=== PATIENT | female | born 1995 | race Caucasian/White ===

== ENCOUNTER 2023-01-24 20:58 | Emergency (ER) | payer MEDICAID, SELFPAY ==
--- NOTE | ~2023-01-24 | US_ITS ---
EXAMINATION: US VENOUS ULTRASOUND WITH DOPPLER LOWER EXTREMITY, BILATERAL CLINICAL INFORMATION: Pain COMPARISON: None available. TECHNIQUE: Ultrasound of the deep veins is performed from the hip to the calf with compression sonography and color and pulse Doppler assessment. Spectral analysis with color-flow imaging is performed. FINDINGS: RIGHT: There is normal venous compression and respiratory variation and augmented flow. The visualized common femoral vein, superficial femoral vein, profunda femoral vein, popliteal vein, and the trifurcation region shows no evidence of deep venous thrombosis. There is no significant popliteal fossa cyst. Mildly prominent inguinal lymph node which may be reactive. LEFT: There is normal venous compression and respiratory variation and augmented flow. The visualized common femoral vein, superficial femoral vein, profunda femoral vein, popliteal vein, and the trifurcation region shows no evidence of deep venous thrombosis. There is no significant popliteal fossa cyst. Mildly prominent inguinal lymph node which may be reactive. If the patient's symptoms persist, followup ultrasound in 5 days 7 days might be of value to exclude proximal propagation from a non-visualized calf vein. US/US venous duplex LE BI IMPRESSION: No DVT demonstrated in the bilateral lower extremities.
--- NOTE | ~2023-01-24 | XR_ITS ---
EXAMINATION: XR CHEST CLINICAL INFORMATION: Shortness of breath COMPARISON: 04/27/2015 TECHNIQUE: 2 views of the chest were obtained. FINDINGS: Lung volumes are symmetric. There are relatively symmetric mild bibasilar airspace opacities and suspected trace pleural effusions. Mild prominence of the central vasculature. No evidence of pneumothorax. Cardiac silhouette appears near the upper limits of normal in size, increased from prior. No acute osseous findings are seen. XR/XR chest 2V IMPRESSION: Mild bibasilar airspace opacities and suspected trace pleural effusions. Mild prominence of the central vasculature is also noted along with increased size of the cardiac silhouette. Overall findings may indicate vascular congestion and subtle interstitial edema in the proper clinical setting.
[2023-01-24 21:50] LABS: MANUAL DIFF FLAG NO
[2023-01-24 21:51] LABS: Basophils Percent Auto 0.2 % (0-2); Eosinophils Absolute Auto 0.2 X10*3/uL (0.0-0.4); Eosinophils Percent Auto 2.2 % (0-4); Hematocrit 28.2 % (37.0-47.0); Hemoglobin 9.2 g/dl (12.0-16.0); Imm Gran Abs Auto 0.06 X10*3/uL (0.00-0.03); Imm Gran Pct Auto 0.7 % (0.0-0.4); Lymphocytes Absolute Auto 1.7 X10*3/uL (1.2-4.9); Lymphocytes Percent Auto 20.5 % (20-40); Mean Corpuscular HGB Conc 32.6 g/dl (31.0-35.0); Mean Platelet Volume 9.7 fL (9.4-12.3); Monocytes Absolute Auto 0.4 X10*3/uL (0.1-1.2); Monocytes Percent Auto 5.3 % (2-11); Neutrophils Absolute Auto 5.9 x10*3/uL (2.0-8.3); Neutrophils Percent Auto 71.1 % (45-73); Platelet Count 327 X10*3/uL (160-400); Red Blood Count 3.17 X10*6/uL (4.20-5.50); Red Cell Distribution Width 12.3 % (11.0-16.0); White Blood Count 8.3 X10*3/uL (4.8-10.8)
[2023-01-24 21:57] LABS: INTERNATIONAL NORM RATIO 0.9 (0.9-1.1); Prothrombin Time 10.3 SEC (10.0-13.1)
[2023-01-24 22:04] LABS: Alanine Aminotransferase 25 U/L (0-31); Albumin Level 3.2 g/dL (3.5-5.0); Alkaline Phosphatase 121 U/L (39-117); Anion Gap 12 (12-20); Aspartate Amino Transferase 18 U/L (5-31); Bilirubin Total 0.3 mg/dL (0.0-1.0); Blood Urea Nitrogen 11 mg/dL (9-16); Calcium 8.9 mg/dL (8.4-10.2); Carbon Dioxide 25 mmol/L (22-29); Chloride 108 mmol/L (96-108); Estimated Glomerular Filt Rate > 60; Glucose Random 87 mg/dL (60-115); Potassium 3.7 mmol/L (3.3-5.1); Sodium 141 mmol/L (135-145); Total Protein 6.2 g/dL (6.5-8.0)
[2023-01-24 22:09] LABS: Appearance Urine Cloudy; Color Urine Orange; Glucose Urine UA Negative (Negative); Leukocyte Esterase Urine Moderate (2+) (Negative); Nitrite Urine Negative (Negative); Specific Gravity - Urine 1.015 (1.005-1.025); UMIC TRIGGER UACC YES; Urine Blood Large (3+) (Negative); Urine Ketones Trace mg/dL (Negative); Urine Protein 100 (2+) mg/dL (Neg-Trace)
[2023-01-24 22:16] LABS: Bacteria Urine None Seen (None Seen); Hyaline Casts Urine 0-2 /LPF (0-2); RBC Urine >20 /HPF (0-2); UACC Culture Trigger YES; WBC Urine >50 /HPF (0-5)
[2023-01-24 22:41] VITALS: BP 167/97; PULSE 63; RESP 18; TEMP 36.9; O2SAT 99; BMI 36.7
--- NOTE | 2023-01-24 22:45 | PC.NURSE ---
patient came in to the ER complaining of having shortness of breath, and swollen extremities patient stated she had a c section last Saturday patient vitals are elevated due to patient stated the pain is a 7/10 patient will continue to be monitored for safety
[2023-01-24 23:32] VITALS: BP 158/92; PULSE 63; RESP 18; TEMP 37.2; O2SAT 98
--- NOTE | 2023-01-25 | ECG_ITS ---
Test Reason : HEART FAILURE Blood Pressure : / mmHG Vent. Rate : 062 BPM Atrial Rate : 062 BPM P-R Int : 132 ms QRS Dur : 072 ms QT Int : 410 ms P-R-T Axes : 062 056 038 degrees QTc Int : 416 ms Normal sinus rhythm Normal ECG When compared with ECG of 27-APR-2015 15:35, No significant change was found Referred By: Generic ED Physician Electronically Signed By:LION MOTLEY MD
[2023-01-25 01:31] VITALS: BP 147/82; PULSE 62; RESP 16; TEMP 36.8; O2SAT 98
--- NOTE | 2023-01-25 01:33 | MHC.EDTECH ---
THIS PCT JUST ASSUMED CARE OD PATIENT ,VITALS SIGN TAKEN ,PT TALKING ON PHONE ,WAITING TO BE SEEN BY PROVIDER .
--- NOTE | 2023-01-25 01:59 | ED.GENADULT ---
HPI - General Adult General Chief complaint: Extremity Problem Stated complaint: c section 7/8 swollen extremities,sob Time Seen by Provider: 01/25/23 01:33 Source: patient, RN notes reviewed and old records reviewed Mode of arrival: ambulatory Limitations: no limitations History of Present Illness HPI narrative: 27-year-old female presents for evaluation of leg swelling. Patient is 6 days She had a on 01/19/2023 This was the patient's 1st child The patient gave at [facility] She reports over last few days she has had increasing leg swelling, left greater than right She continues to have some vaginal bleeding with decreasing amounts of clots Patient reports associated shortness of breath. She states that she was diagnosed with ?asthma while I was . She tried calling her OBGYN today but was told should receive a call back and then the office closed before calling her back Denies any history of DVT or PE Related Data Allergies Allergy/AdvReac Type Severity Reaction Status Date / Time nut - unspecified [nut] Allergy Unknown TONGUE Unverified 03/31/20 17:26 SWELLS FRUIT Allergy Unknown TONGUE Uncoded 03/31/20 17:26 TINGLING Review of Systems Constitutional: Constitutional: Denies chills and Denies fever(s) Cardiovascular: Cardiovascular: Denies chest pain, Reports leg edema and Reports dyspnea Respiratory: Respiratory: Reports dyspnea Gastrointestinal: Gastrointestinal: Denies abdominal pain, Denies nausea and Denies vomiting Integumentary/Breasts: Skin/Breast: Denies erythema PMFSH Social History Social History Advance Directives: No Advance Directives Information Provided: Yes Physical Exam ED Vital Signs: Vital Signs - 24 hr 01/24/23 22:41 01/24/23 23:32 01/25/23 01:31 Temperature 98.4 F 99 F 98.2 F Pulse Rate 63 63 62 Respiratory Rate 18 18 16 Blood Pressure 167/97 H 158/92 H 147/82 H Pulse Oximetry 99 98 98 Oxygen Delivery Method Room Air Room Air Room Air BMI result Body Mass Index 36.7 Const General: healthy appearing, comfortable, no acute distress, alert and awake Nutritional Appearance: well nourished Orientation/consciousness: patient oriented x3 HENMT Head: Yes normocephalic and Yes atraumatic Eyes Eyelids: Yes eyelids normal Conjunctivae: conjunctivae normal Sclerae: sclerae normal Corneas: corneas normal Pupils: Equal, round and reactive pupils present EOM: EOMs intact bilaterally Neck Neck: Yes full ROM Resp Effort & Inspection: normal respiratory effort, able to speak in complete sentences, no audible wheezes and not labored Auscultation: clear to auscultation bilaterally Cardio Other: 2+ pitting edema to lower extremities bilaterally. Slightly left greater than right Skin General skin exam: elasticity normal Neuro General: patient oriented x3 Cranial nerves: Yes Equal, round and reactive pupils present and Yes Bilaterally intact EOM present Cognition (Neuro): normal cognition Extrem Other: Moving all extremities well without any obvious deformities Course Reevaluation(s) Reevaluation #1: The patient's blood pressure remains slightly elevated to 147/82. Ultrasound negative for DVT, chest x-ray shows mild volume overload. Will discuss with the patient's [facility] team at [facility]. The patient's vitals are otherwise stable, she is not hypoxic or tachycardic. A page is placed to [facility] at this time Time: 02:30 Reevaluation #2: Received call back from Dr. Finnegan, apparently the patient is in the [facility] system as Dorie Garza which slowed the process but I confirm with the patient at that is her new legal name. Dr. Finnegan would like the patient transferred to [facility] but may go by private car. I discussed this with the patient. The accepting doctor is Dr. Russel Porter. I discussed this with the patient who is comfortable with transfer and her significant other is bedside to drive her to [facility] and they report they know where they are expecting. The number to call for Report is [phone] nursing. Patient's chest x-ray and DVT ultrasounds were uploaded to radiology sharing Time: 03:20 Medical Decision Making Medical Decision Making MDM Narrative: 27-year-old female presents for evaluation of leg swelling, 6 days . There is obvious concern for DVT/PE. Will get ultrasounds to evaluate for DVT. Chest x-ray is also pending. Labs are significant for a mild anemia with a hemoglobin of 9.2 and hematocrit 28.2. This is expected after the patient's recent and expected vaginal bleeding. She reports that the bleeding has been improving. Patient's vital signs remained stable, she is not tachycardic or hypoxic. He can likely be safely discharged if she does not have any DVTs and no significant chest x-ray findings. Differential Diagnosis Symptomatic anemia Chronic anemia DVT PE Bronchitis Pneumonia Heart failure Preeclampsia Lab Data MDM Lab Attestation statement: I reviewed the patient's lab results. (Mild anemia with a hemoglobin of 9.2 and hematocrit of 28.2. No leukocytosis. Electrolytes without any significant abnormalities.) 01/24/23 21:44 01/24/23 21:44 Labs: Lab Results 01/24/23 01/24/23 01/24/23 Range/Units 21:44 21:44 21:44 WBC 8.3 (4.8-10.8) X10*3/uL RBC 3.17 L (4.20-5.50) X10*6/uL Hgb 9.2 L (12.0-16.0) g/dl Hct 28.2 L (37.0-47.0) % MCV 89.0 (80.0-98.0) fL MCH 29.0 (27.0-33.0) pg MCHC 32.6 (31.0-35.0) g/dl RDW 12.3 (11.0-16.0) % Plt Count 327 (160-400) X10*3/uL MPV 9.7 (9.4-12.3) fL Immature Gran % (Auto) 0.7 H (0.0-0.4) % Neut % (Auto) 71.1 (45-73) % Lymph % (Auto) 20.5 (20-40) % Nye % (Auto) 5.3 (2-11) % Eos % (Auto) 2.2 (0-4) % Baso % (Auto) 0.2 (0-2) % Lymph # (Auto) 1.7 (1.2-4.9) X10*3/uL Nye # (Auto) 0.4 (0.1-1.2) X10*3/uL Eos # (Auto) 0.2 (0.0-0.4) X10*3/uL Baso # (Auto) 0.0 (0.0-0.2) X10*3/uL Abs Immat Gran (auto) 0.06 H (0.00-0.03) X10*3/uL Absolute Neuts (auto) 5.9 (2.0-8.3) x10*3/uL Absolute Nucleated RBC 0.000 (0.0-0.012) X10*3/uL Nucleated RBC % (auto) 0.0 (0.0-0.2) /100WBC PT 10.3 (10.0-13.1) SEC INR 0.9 (0.9-1.1) Sodium 141 (135-145) mmol/L Potassium 3.7 (3.3-5.1) mmol/L Chloride 108 (96-108) mmol/L Carbon Dioxide 25 (22-29) mmol/L Anion Gap 12 (12-20) BUN 11 (9-16) mg/dL Creatinine 0.70 (0.5-1.4) mg/dL Estim Creat Clear Calc TNP Estimated GFR > 60 Random Glucose 87 (60-115) mg/dL Calcium 8.9 (8.4-10.2) mg/dL Total Bilirubin 0.3 (0.0-1.0) mg/dL AST 18 (5-31) U/L ALT 25 (0-31) U/L Alkaline Phosphatase 121 H (39-117) U/L Total Protein 6.2 L (6.5-8.0) g/dL Albumin 3.2 L (3.5-5.0) g/dL Urine Color Urine Appearance Urine pH (5.0-9.0) Ur Specific [place] (1.005-1.025) Urine Protein (Neg-Trace) mg/dL Urine Glucose (UA) (Negative) mg/dL Urine Ketones (Negative) mg/dL Urine Blood (Negative) Urine Nitrite (Negative) Ur Leukocyte Esterase (Negative) Urine RBC (0-2) /HPF Urine WBC (0-5) /HPF Ur Squamous Epith Cells (0-2) /HPF Urine Bacteria (None Seen) Hyaline Casts (0-2) /LPF 01/24/23 Range/Units 21:44 WBC (4.8-10.8) X10*3/uL RBC (4.20-5.50) X10*6/uL Hgb (12.0-16.0) g/dl Hct (37.0-47.0) % MCV (80.0-98.0) fL MCH (27.0-33.0) pg MCHC (31.0-35.0) g/dl RDW (11.0-16.0) % Plt Count (160-400) X10*3/uL MPV (9.4-12.3) fL Immature Gran % (Auto) (0.0-0.4) % Neut % (Auto) (45-73) % Lymph % (Auto) (20-40) % Nye % (Auto) (2-11) % Eos % (Auto) (0-4) % Baso % (Auto) (0-2) % Lymph # (Auto) (1.2-4.9) X10*3/uL Nye # (Auto) (0.1-1.2) X10*3/uL Eos # (Auto) (0.0-0.4) X10*3/uL Baso # (Auto) (0.0-0.2) X10*3/uL Abs Immat Gran (auto) (0.00-0.03) X10*3/uL Absolute Neuts (auto) (2.0-8.3) x10*3/uL Absolute Nucleated RBC (0.0-0.012) X10*3/uL Nucleated RBC % (auto) (0.0-0.2) /100WBC PT (10.0-13.1) SEC INR (0.9-1.1) Sodium (135-145) mmol/L Potassium (3.3-5.1) mmol/L Chloride (96-108) mmol/L Carbon Dioxide (22-29) mmol/L Anion Gap (12-20) BUN (9-16) mg/dL Creatinine (0.5-1.4) mg/dL Estim Creat Clear Calc Estimated GFR Random Glucose (60-115) mg/dL Calcium (8.4-10.2) mg/dL Total Bilirubin (0.0-1.0) mg/dL AST (5-31) U/L ALT (0-31) U/L Alkaline Phosphatase (39-117) U/L Total Protein (6.5-8.0) g/dL Albumin (3.5-5.0) g/dL Urine Color [place] A Urine Appearance Cloudy Urine pH 7.0 (5.0-9.0) Ur Specific [place] 1.015 (1.005-1.025) Urine Protein 100 (2+) H (Neg-Trace) mg/dL Urine Glucose (UA) Negative (Negative) mg/dL Urine Ketones Trace (Negative) mg/dL Urine Blood Large (3+) H (Negative) Urine Nitrite Negative (Negative) Ur Leukocyte Esterase Moderate (2+) H (Negative) Urine RBC >20 H (0-2) /HPF Urine WBC >50 H (0-5) /HPF Ur Squamous Epith Cells 6-10 (0-2) /HPF Urine Bacteria None Seen (None Seen) Hyaline Casts 0-2 (0-2) /LPF Discharge Plan Discharge Clinical Impression: Anemia, Leg swelling, Hypertension, Pre-eclampsia Patient Disposition: [facility] Transfer Details: [facility], aNdeem Ibrahim
--- NOTE | 2023-01-25 02:45 | MHC.EDTECH ---
PATIENT BNP DRAWN AND SENT TO LAB .
--- NOTE | 2023-01-25 03:33 | PC.NURSE ---
Took over care at 3:30 From JAZ Fernandez, pt a&o, pt reports having some sob and some chest pain 02/21. plus 3 edema to lower extremities. EKG ordered.
[2023-01-25 03:40] VITALS: BP 155/81; PULSE 66; RESP 16; TEMP 36.9; O2SAT 98
--- NOTE | 2023-01-25 03:42 | PC.NURSE ---
Called report to [facility]. Pt by transferred by car.
--- NOTE | 2023-01-25 03:44 | PC.NURSE ---
pt has positive CMS and pedal pulses.
--- NOTE | 2023-01-25 03:48 | MHC.EDTECH ---
EKG TAKEN AND WAS READ BY PROVIDER ,VITALS SIGN RE CHECK .
--- NOTE | 2023-01-25 03:48 | MHC.EDTECH ---
call out to [facility] for transfer at 0230 [facility]
--- NOTE | 2023-01-25 03:50 | MHC.EDTECH ---
Pt transferred out to [facility] in private car Accepting provider Russel Crabtree
[2023-01-25 04:02] LABS: B Type Natriuretic Peptide 504 pg/mL (<100)
== END 2023-01-25 03:50 | disposition short-term general hospital (02) ==
PROVIDERS: Physician Assistant; Emergency Provider Student in an Organized Health Care Education/Training Program
DX: O14.95 Unspecified pre-eclampsia, complicating the puerperium (principal); R60.0 Localized edema; D64.9 Anemia, unspecified; R06.02 Shortness of breath; Z79.899 Other long term (current) drug therapy
CPT/HCPCS: 36415; 71046; 80053; 81001; 81003; 83880; 85025; 85610; 87086; 93005; 93970; 99284; 99285

== ENCOUNTER → 2023-01-25 03:26 | Outpatient (BNV) | payer MEDICAID, SELFPAY | PROVIDERS: Emergency Provider Student in an Organized Health Care Education/Training Program; Visit Provider Internal Medicine Cardiovascular Disease | DX: I50.9 Heart failure, unspecified (principal) | CPT/HCPCS: 93010 ==

== ENCOUNTER 2023-02-04 10:39 | Outpatient (AMB) | payer MEDICAID, SELFPAY ==
--- NOTE | 2023-02-04 10:58 | A.OFFVIS_ITS ---
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 She recently had her 1st baby. She said she had a prolonged delivery and eventually had to get . She was experiencing some chest discomfort, shortness of breath as well as lower extremity edema during which was felt to be related to . After delivery she had leg swelling ongoing and shortness of breath and reached out to OBGYN at [facility] but was told that nothing different need to be done right now. Subsequently she had more shortness of breath and was having trouble caring her baby and went to [facility] Emergency Department on 01/25/2023. Her blood workup and chest x-ray with showed concern for congestive heart failure. Blood pressure in ER was elevated with highs blood pressure 167/97. After discussion with OBGYN she was transferred to [facility] [place]. She was seen by Cardiology there and was diuresed. She said her symptoms improved after diuretics. She had an echocardiogram which showed low normal ejection fraction of 50-5% without any significant valvular pathology. She said subsequent to that she was discharged home and now she is 9 days at home with the baby. She has not been discharged on any medications. Her lower extremity edema has improved. She is saying her breathing is improving too. She still gets some orthopnea like episodes off and on. With her day-to-day activities her breathing is improving. Her blood pressure in our office is 120/70. She gets some breathing issues and coughs when she takes a deep breath. She has known history of asthma. EKG reviewed from 01/25/2023 showing sinus rhythm 62 beats per minute, normal EKG, QTC 460 milliseconds. Labs, x-ray and imaging reviewed. Her BNP was 502. Chest x-ray showed concern for mild congestive heart failure. [facility] Social History (Updated 02/04/23 @ 11:16 by Chiara Elizondo) Alcohol intake: current Alcohol intake frequency: holidays/special occasions only Review of Systems Const Denies chills, Denies daytime sleepiness, Denies fatigue, Denies fever(s), Denies frequent falls, Denies night sweats, Denies snoring, Denies weakness, Denies weight gain and Denies weight loss Eyes Denies loss of vision ENT Denies dizziness and Denies hearing loss Card Denies chest pain, Denies chest pain with activity, Denies syncope, Denies rapid heart rate, Denies edema, Denies claudication, Denies leg edema, Denies lightheadedness, Denies palpitations, Denies dyspnea, Denies dyspnea on exertion and Denies orthopnea Resp Denies cough, Denies excessive phlegm production, Denies dyspnea, Denies dyspnea on exertion, Denies snoring and Denies wheezing GI Denies abdominal pain, Denies hematochezia, Denies change in bowel habits, Denies change in stool character, Denies heartburn, Denies nausea and Denies vomiting Denies hematuria, Denies urinary frequency and Denies dysuria Musc Denies arthralgias, Denies muscle weakness, Denies numbness and Denies tingling Skin/Breast Denies nail changes and Denies rash Neuro Denies Abnormal speech present, Denies dizziness, Denies syncope, Denies frequent falls, Denies loss of vision, Denies memory loss, Denies numbness, Denies tingling and Denies weakness Psych Denies depression and Denies memory loss Endo Denies fatigue and Denies palpitations Aller/Immun Denies wheezing Physical Exam Vital Signs: Last Vital Signs Pulse 84 02/04/23 11:04 BP 120/70 02/04/23 11:04 BMI result Body Mass Index 32.9 GENERAL APPEARANCE: in no acute distress, pleasant. NECK: no carotid bruit, no jugular venous distention. No hepatic jugular reflux. SKIN: no suspicious lesions, warm and dry. HEART: no murmurs, regular rate and rhythm. LUNGS: clear to auscultation bilaterally. ABDOMEN: soft, nontender. EXTREMITIES: no edema. PERIPHERAL PULSES: equal. NEUROLOGIC: No gross deficits, AAO X 3 Neuro Speech: No Abnormal speech present Office Procedures EKG Details: Sinus rhythm 84 per minute, rightward axis, QTC 427 milliseconds. [id number], Complete Assessment & Plan Assessment & Plan (1) CHF (congestive heart failure): Code(s): I50.9 - Heart failure, unspecified Plan 27-year-old female who is here for 1st office visit. She was at [facility] Emergency Department on 01/25/2023 after couple of days of delivering her 1st baby. She clinically was felt to be in congestive heart failure. Her blood pressure was elevated. She was transferred to [facility] [place] and had echocardiogram which showed low normal ejection fraction 50-55% without any significant wall motion or valvular pathology. She was diuresed and was discharged home without any medications. She was told that she probably had preeclampsia. Given the fact that her blood pressures were elevated in our ER, it is possible that she had preeclampsia which led to some congestive heart failure. She looks euvolemic currently. She is not on any medications currently. She plans to breastfeed for the next 4-5 months. I have explained to her that she likely had diastolic heart failure in the setting of elevated blood pressures along with hypervolemia of and anemia as other potential triggers. I think she does not need any medications currently. I did explain to her that this puts her at higher risk for the next and need to be very vigilant in monitoring her blood pressure and looking for symptoms/signs of preeclampsia. I think she should have a BNP level drawn in few months. We will see her back in 3-4 months and have a BNP drawn before that. If she developed any breathing issues then we will see her in the office earlier. Thank you for allowing me to participate in the care of your patient. Please feel free to contact me if you have any questions. Orders: Orders B Type Natriuretic Peptide Today I50.9 - Heart failure, unspecified Coding Level of Care Code New Pt Level 4 (29970) Diagnoses CHF (congestive heart failure) I50.9 CPT Codes EKG - CPT: 90402-[id number], Complete ([id number])
[2023-02-04 11:04] VITALS: BP 120/70; PULSE 84; BMI 32.9
== END 2023-02-04 11:50 | disposition home or self-care (01) ==
LOC: HO.HCS 10:39
PROVIDERS: PCP Internal Medicine; Visit Provider Internal Medicine Cardiovascular Disease
DX: I50.9 Heart failure, unspecified (principal)
CPT/HCPCS: 93010; 99204

== ENCOUNTER → 2023-02-04 10:39 | Outpatient (BNVA) | payer MEDICAID, SELFPAY | PROVIDERS: PCP Internal Medicine; Visit Provider Internal Medicine Cardiovascular Disease | DX: I50.9 Heart failure, unspecified (principal) | CPT/HCPCS: 93005; 99202 ==

== ENCOUNTER 2023-06-12 13:07 | Outpatient (REF) | payer MEDICAID, SELFPAY ==
[2023-06-12 14:36] LABS: B Type Natriuretic Peptide < 10 pg/mL (<100)
== END 2023-06-12 13:08 | disposition home or self-care (01) ==
LOC: HO.LAB 13:07
PROVIDERS: PCP Internal Medicine; Visit Provider Internal Medicine Cardiovascular Disease
DX: I50.9 Heart failure, unspecified (principal)
CPT/HCPCS: 36415; 83880; 93005; 99212

== ENCOUNTER 2023-06-12 13:07 | Outpatient (AMB) | payer MEDICAID, SELFPAY ==
[2023-06-12 13:09] VITALS: BP 130/70; PULSE 101; BMI 35.6
--- NOTE | 2023-06-12 13:09 | A.OFFVIS_ITS ---
Intake Vital Signs 06/12/23 13:09 Height 5 ft 4 in Weight 207 lb 3.752 oz BMI 35.6 BP 130/70 Blood Pressure Location Lt brachial Position Sitting Pulse 101 H Pulse Source Pulse Oximeter Intake Visit Reasons: 4 mth f u Intake Note: 4 month follow/patient feels pressure in the front and midback. Allergies nut - unspecified [nut] Allergy (Unknown, Verified 06/12/23 13:14) TONGUE SWELLS FRUIT Allergy (Unknown, Uncoded 03/31/20 17:26) TONGUE TINGLING Medication List - Last Reconciled 06/12/23 by Colton Curtis MD No Known Home Meds HPI HPI Comments History of Present Illness Details 28-year-old female who is here for 1st o ffice visit. She recently had her 1st baby. She said she had a prolonged delivery and eventually had to get . She was experiencing some chest discomfort, shortness of breath as well as lower extremity edema during which was felt to be related to . After delivery she had leg swelling ongoing and shortness of breath and reached out to OBGYN at [facility] but was told that nothing different need to be done right now. Subsequently she had more shortness of breath and was having trouble caring her baby and went to [facility] on 01/25/2023. Her blood workup and chest x-ray with showed concern for congestive heart failure. Blood pressure in ER was elevated with highs blood pressure 167/97. After discussion with OBGYN she was transferred to [facility]. She was seen by Cardiology there and was diuresed. She said her symptoms improved after diuretics. She had an echocardiogram which showed low normal ejection fraction of 50-5% without any significant valvular pathology. She said subsequent to that she was discharged home and now she is 9 days at home with the baby. She has not been discharged on any medications. Her lower extremity edema has improved. She is saying her breathing is improving too. She still gets some orthopnea like episodes off and on. With her day-to-day activities her breathing is improving. Her blood pressure in our office is 120/70. She gets some breathing issues and coughs when she takes a deep breath. She has known history of asthma. EKG reviewed from 01/25/2023 showing sinus rhythm 62 beats per minute, normal EKG, QTC 460 milliseconds. Labs, x-ray and imaging reviewed. Her BNP was 502. Chest x-ray showed concern for mild congestive heart failure. 06/12/23: She returns for follow-up. S he is doing well. She was advised to get repeat BNP level but she did not do it. On follow-up she is doing well. No chest discomfort. She is getting some wheezing with activity and is using albuterol inhaler p.r.n.. She is saying that the wheezing improves somewhat with albuterol. This happens when she really goes uphill 0 pushes herself. She has no significant edema. Occasionally gets orthopnea like episodes but nothing consistent. No PND. [facility] Social History Alcohol intake: current Alcohol intake frequency: holidays/special occasions only Review of Systems Const Reports chills, Reports fatigue, Reports fever(s), Reports frequent falls, Reports weakness, Reports weight gain and Reports weight loss ENT Reports dizziness Card Reports leg edema, Reports lightheadedness, Reports palpitations, Reports dyspnea and Reports dyspnea on exertion Resp Reports cough, Reports dyspnea and Reports dyspnea on exertion GI Reports hematochezia Musc Reports abnormal gait, Reports muscle weakness, Reports numbness, Reports radiating pain into limb and Reports tingling Neuro Reports abnormal gait, Reports dizziness, Reports frequent falls, Reports numbness, Reports tingling and Reports weakness Endo Reports fatigue and Reports palpitations Physical Exam Vital Signs: Last Vital Signs Pulse 101 H 06/12/23 13:09 BP 130/70 06/12/23 13:09 BMI result Body Mass Index 35.6 GENERAL APPEARANCE: in no acute distress, pleasant. NECK: no carotid bruit, no jugular venous distention. SKIN: no suspicious lesions, warm and dry. HEART: no murmurs, regular rate and rhythm. Tachycardic. LUNGS: clear to auscultation bilaterally. ABDOMEN: soft, nontender. EXTREMITIES: no edema. PERIPHERAL PULSES: equal. NEUROLOGIC: No gross deficits, AAO X 3 Office Procedures EKG Details: Sinus rhythm 95 beats per minute, right axis deviation, otherwise normal EKG, QTC 424 milliseconds. [id number], Complete Assessment & Plan Assessment & Plan (1) CHF (congestive heart failure): Code(s): I50.9 - Heart failure, unspecified Plan 28-year-old female with CHF episode in the alber period. She had echocardiography at [facility] which showed EF of 50 55%. Her BNP at [place] was 504 at that time. Subsequent to that she was diuresed and discharged home. She has not been on any medications since then. Overall clinically she has been doing well. She occasionally gets some orthopnea like episodes but nothing consistent. No JVD by examination or any signs of volume overload. I have advised her to repeat the BNP level. We will repeat another echocardiogram to see if there is any change x-ray fraction. I am sending a blood pressure cuff to monitor blood pressure at home because she had elevated blood pressures when she presented with congestive heart failure. Thank you for allowing me to participate in the care of your patient. Please feel free to contact me if you have any questions. Orders: Orders B Type Natriuretic Peptide Today I50.9 - Heart failure, unspecified CA echo transthoracic complete Today I50.9 - Heart failure, unspecified Coding Level of Care Code Est Pt Level 4 (59917) Diagnoses CHF (congestive heart failure) I50.9 CPT Codes EKG - CPT: 86764-[id number], Complete ([id number])
== END 2023-06-12 13:43 | disposition home or self-care (01) ==
PROVIDERS: PCP Internal Medicine; Visit Provider Internal Medicine Cardiovascular Disease
DX: I50.9 Heart failure, unspecified (principal)
CPT/HCPCS: 93010; 99214

== ENCOUNTER 2023-06-25 19:56 | Emergency (ER) | payer MEDICAID, SELFPAY ==
--- NOTE | ~2023-06-25 | XR_ITS ---
EXAMINATION: XR CHEST CLINICAL INFORMATION: Chest pain. COMPARISON: 01/25/2023. TECHNIQUE: Frontal view of the chest was obtained. FINDINGS: No significant abnormality is noted involving the heart, lungs, mediastinum, bony thorax or soft tissues. XR/XR chest 1V IMPRESSION: Unremarkable examination.
--- NOTE | 2023-06-25 19:57 | ECG_ITS ---
Test Reason : chest pain Blood Pressure : / mmHG Vent. Rate : 099 BPM Atrial Rate : 099 BPM P-R Int : 130 ms QRS Dur : 074 ms QT Int : 328 ms P-R-T Axes : 029 063 047 degrees QTc Int : 420 ms Normal sinus rhythm Normal ECG When compared to the previous EKG of No significant changes seen Referred By: Serena Mercedes Electronically Signed By:Colton Curtis
[2023-06-25 20:12] LABS: MANUAL DIFF FLAG NO
[2023-06-25 20:18] LABS: Basophils Percent Auto 0.1 % (0-2); Eosinophils Percent Auto 0.2 % (0-4); Hematocrit 40.3 % (37.0-47.0); Hemoglobin 13.6 g/dl (12.0-16.0); Imm Gran Abs Auto 0.03 X10*3/uL (0.00-0.03); Imm Gran Pct Auto 0.3 % (0.0-0.4); Lymphocytes Absolute Auto 0.9 X10*3/uL (1.2-4.9); Lymphocytes Percent Auto 7.5 % (20-40); Mean Corpuscular HGB Conc 33.7 g/dl (31.0-35.0); Mean Corpuscular Hemoglobin 29.3 pg (27.0-33.0); Mean Corpuscular Volume 86.9 fL (80.0-98.0); Mean Platelet Volume 9.7 fL (9.4-12.3); Monocytes Absolute Auto 0.4 X10*3/uL (0.1-1.2); Monocytes Percent Auto 3.7 % (2-11); Neutrophils Absolute Auto 9.9 x10*3/uL (2.0-8.3); Neutrophils Percent Auto 88.2 % (45-73); Platelet Count 336 X10*3/uL (160-400); Red Blood Count 4.64 X10*6/uL (4.20-5.50); Red Cell Distribution Width 11.7 % (11.0-16.0); White Blood Count 11.3 X10*3/uL (4.8-10.8)
[2023-06-25 20:27] LABS: Alanine Aminotransferase 17 U/L (0-31); Albumin Level 4.4 g/dL (3.5-5.0); Alkaline Phosphatase 71 U/L (39-117); Anion Gap 15 (12-20); Aspartate Amino Transferase 15 U/L (5-31); Bilirubin Direct 0.2 mg/dL (0.0-0.5); Bilirubin Total 0.5 mg/dL (0.0-1.0); Blood Urea Nitrogen 9 mg/dL (9-16); Calcium 9.7 mg/dL (8.4-10.2); Carbon Dioxide 24 mmol/L (22-29); Chloride 103 mmol/L (96-108); Estimated Glomerular Filt Rate > 60; Glucose Random 108 mg/dL (60-115); Potassium 3.6 mmol/L (3.3-5.1); Sodium 138 mmol/L (135-145); Total Protein 8.1 g/dL (6.5-8.0)
[2023-06-25 20:34] LABS: Troponin-I High Sensitivity < 2.7 ng/L (<3.5-17.0)
--- NOTE | 2023-06-25 20:35 | ED.CHESTPAIN ---
HPI - Chest Pain General Chief Complaint: Chest Pain Stated Complaint: CHEST PAIN/ASTHMA/DIZZY Related Data Previous Rx's Medication Instructions Recorded miscellaneous medical supply #1 ea 06/14/23 (Blood Pressure Cuff) Allergies Allergy/AdvReac Type Severity Reaction Status Date / Time nut - unspecified [nut] Allergy Unknown TONGUE Verified 06/25/23 20:37 SWELLS FRUIT Allergy Unknown TONGUE Uncoded 03/31/20 17:26 TINGLING PMFSH Social History Social History Alcohol intake: current Alcohol intake frequency: holidays/special occasions only Advance Directives: No Advance Directives Information Provided: No Physical Exam Vital Signs: Vital Signs: Last Vital Signs Temp 97.5 F 06/25/23 20:37 Pulse 113 H 06/25/23 20:37 Resp 18 06/25/23 20:37 BP 115/62 06/25/23 20:37 Pulse Ox 99 06/25/23 20:37 O2 Del Method Room Air 06/25/23 20:37 BMI result Body Mass Index 34.2 Course Course Course Narrative: RME: 28yo F w/PMHx CHF (after in January) not currently on diuretic c/o CP, SOB, lightheadedness/dizziness x few hours w/cough, URI sx and fever. Admits was seen at this morning for similar sx. EKG, Labs, CXR, viral testing ordered Full HPI, ROS and PE to be performed by primary ED provider. Medical Decision Making Lab Data 06/25/23 20:08 06/25/23 20:08 Labs: Lab Results 06/25/23 06/25/23 Range/Units 20:08 20:49 WBC 11.3 H (4.8-10.8) X10*3/uL RBC 4.64 D (4.20-5.50) X10*6/uL Hgb 13.6 D (12.0-16.0) g/dl Hct 40.3 D (37.0-47.0) % MCV 86.9 (80.0-98.0) fL MCH 29.3 (27.0-33.0) pg MCHC 33.7 (31.0-35.0) g/dl RDW 11.7 (11.0-16.0) % Plt Count 336 (160-400) X10*3/uL MPV 9.7 (9.4-12.3) fL Immature Gran % (Auto) 0.3 (0.0-0.4) % Neut % (Auto) 88.2 H (45-73) % Lymph % (Auto) 7.5 L (20-40) % [place] % (Auto) 3.7 (2-11) % Eos % (Auto) 0.2 (0-4) % Baso % (Auto) 0.1 (0-2) % Lymph # (Auto) 0.9 L (1.2-4.9) X10*3/uL [place] # (Auto) 0.4 (0.1-1.2) X10*3/uL Eos # (Auto) 0.0 (0.0-0.4) X10*3/uL Baso # (Auto) 0.0 (0.0-0.2) X10*3/uL Abs Immat Gran (auto) 0.03 (0.00-0.03) X10*3/uL Absolute Neuts (auto) 9.9 H (2.0-8.3) x10*3/uL Absolute Nucleated RBC 0.000 (0.0-0.012) X10*3/uL Nucleated RBC % (auto) 0.0 (0.0-0.2) /100WBC Sodium 138 (135-145) mmol/L Potassium 3.6 (3.3-5.1) mmol/L Chloride 103 (96-108) mmol/L Carbon Dioxide 24 (22-29) mmol/L Anion Gap 15 (12-20) BUN 9 (9-16) mg/dL Creatinine 0.90 (0.5-1.4) mg/dL Estim Creat Clear Calc TNP Estimated GFR > 60 Random Glucose 108 (60-115) mg/dL Calcium 9.7 D (8.4-10.2) mg/dL Total Bilirubin 0.5 (0.0-1.0) mg/dL Direct Bilirubin 0.2 (0.0-0.5) mg/dL AST 15 (5-31) U/L ALT 17 (0-31) U/L Alkaline Phosphatase 71 (39-117) U/L Troponin I High Sens < 2.7 (<3.5-17.0) ng/L Total Protein 8.1 H (6.5-8.0) g/dL Albumin 4.4 (3.5-5.0) g/dL COVID-19 (HAL) Negative (Negative) COVID-19 Clin Com See Note Influenza Type A (CECIL) Negative (Negative) Influenza Type B (CECIL) Negative (Negative) Influenza A & B Note See Note Discharge Plan Discharge Clinical Impression: Upper respiratory symptom Patient Disposition: Elopement Prescriptions: No Action (DME) Blood Pressure Cuff Misc See Rx Instructions .Route Qty: 1 0RF Rx Instructions: As directed Discharge Date/Time: 06/26/23 01:07
[2023-06-25 20:37] VITALS: BP 115/62; PULSE 113; RESP 18; TEMP 36.4; O2SAT 99; BMI 34.2
[2023-06-25 21:08] LABS: COVID-19 Test Negative (Negative); IDNOW Serial# 08D9AD1C
[2023-06-25 21:09] LABS: IDNOW Serial# BCCEAD1C; Influenza A Negative (Negative); Influenza B2 Negative (Negative)
--- NOTE | 2023-06-26 01:07 | PC.NURSE ---
pt called in WR multiple times. not visulaized at this time.
== END 2023-06-26 01:07 | disposition left against medical advice (07) ==
PROVIDERS: Physician Assistant; Emergency Provider Emergency Medicine; PCP Internal Medicine
DX: R07.89 Other chest pain (principal); J45.909 Unspecified asthma, uncomplicated; R42 Dizziness and giddiness; R50.9 Fever, unspecified; R06.02 Shortness of breath; Z11.52 Encounter for screening for COVID-19; Z20.822 Contact with and (suspected) exposure to COVID-19; Z79.899 Other long term (current) drug therapy
CPT/HCPCS: 36415; 71045; 80048; 80076; 84484; 85025; 87502; 87635; 93005; 99283

== ENCOUNTER → 2023-06-25 19:57 | Outpatient (BNV) | payer MEDICAID, SELFPAY | PROVIDERS: Emergency Provider Emergency Medicine; PCP Internal Medicine; Visit Provider Internal Medicine Cardiovascular Disease | DX: R07.9 Chest pain, unspecified (principal) | CPT/HCPCS: 93010 ==

== ENCOUNTER → 2023-08-02 13:12 | Outpatient (REF) | payer MEDICAID, SELFPAY ==
--- NOTE | 2023-08-02 13:16 | CA_ITS ---
Transthoracic Echocardiogram Patient (Last, First, Middle): Dorie Garza, Gender: Female Date of : 1995 Age: 28 Procedure Date: 08/02/2023 Procedure Type: Transthoracic Echocardiogram Location: OP Height: 162.56 cm Weight: 90.27 kg BSA: 1.95 m2 Heart Rate: 69 bpm BP: 124 / 80 mmHg Wind Commissioning Technician: Referring MD: Colton Curtis MD Scanning Coordinator: Colton Curtis MD Symptoms: I50.9 - Heart failure, unspecified Study Quality: Adequate ECG Rhythm: Sinus Conclusions: - The left ventricular systolic function is normal. The calculated ejection fraction is 61% by biplane method. - No obvious valvular pathology seen on this study. Findings Left Ventricle Normal left ventricular cavity size. There is normal left ventricular wall thickness. The left ventricular systolic function is normal. The calculated ejection fraction is 61% by biplane method. There is no evidence of regional wall motion abnormalities. Diastolic function is normal for age. Right Ventricle Normal right ventricular cavity size and systolic function. Atria Both atria are normal in size. Aortic Valve There is a normal trileaflet aortic valve. There is no aortic valve stenosis. There is no aortic valve regurgitation. Mitral Valve The mitral valve appears normal. There is no mitral valve regurgitation. There is no mitral valve stenosis. Pulmonic Valve The pulmonic valve is likely normal. Tricuspid Valve Normal tricuspid valve structure. There is trace tricuspid valve regurgitation. There is no evidence of pulmonary hypertension. Great Vessels The asc aorta is normal in size. Venous The inferior vena cava is normal in size and collapses greater than 50% with inspiration. Pericardium/Pleural There is no evidence of pericardial effusion. Prior Study Comparison No prior study available for comparison. Recommendations, Care & Conclusions No obvious valvular pathology seen on this study. Measurements 2D Linear Measurements LVOT Diam: 2.00 3.0+(-)1.3 cm 2D Systolic Function EF 4C: 58.80 >55% EF 2C: 63.60 >55% EF BiP: 61.00 >55% Mitral Valve MV Pk E: 0.92 MV PK A: 0.47 MV Decel Time: 163.00 E/A: 2.00 E'Lateral: 16.60 E'Medial: 11.60 E/E' Med: 7.90 E/E' Lat: 5.50 PHT: 48.00 MVA PHT: 4.58 Decel Campbell: 5.61 Aortic Valve AoV Pk Daniel: 1.41 AoV Mn Daniel: 0.91 AoV VTI: 0.27 AoV Pk Grad: 8.00 Aov Mn Grad: 4.00 JUVE Cont.VTI: 2.37 LVOT LVOT Pk Daniel: 1.05 LVOT Mn Daniel: 0.67 LVOT VTI: 0.20 LVOT Pk Grad: 4.00 LVOT Mn Grad: 2.00 LVOT Diam: 2.00 LVOT Area: 3.14 Diastolic Function MV Pk E: 0.92 MV Pk A: 0.47 E/A: 2.00 E'Medial: 11.60 E/E' Med: 7.90 E' Laterial: 16.60 E/E' Lat: 5.50 Right Ventricle TAPSE (mm): 21.70 TVS' Daniel: 12.30 Tricuspid Valve TR Pk Daniel: 2.16 TR Pk Grad: 19.00 RA Press: 3.00 RVSP: 22.00 Great Vessels Aorta Sinus of Valsalva: 2.30 2.0-3.5 cm Ao Asc: 2.50 2.1-3.4 cm Pulmonary Valve PV Pk Daniel: 0.92 Peak PV Grad: 3.00 Updated in Other Vendor System with Status of Final Joseph Abraham MD electronically signed on 08/03/2023 3:13:40 PM with status of Final
== END ==
LOC: HO.CARD 13:12
PROVIDERS: PCP Internal Medicine; Visit Provider Internal Medicine Cardiovascular Disease
DX: I50.9 Heart failure, unspecified (principal)
CPT/HCPCS: 93306

== ENCOUNTER → 2023-08-02 13:16 | Outpatient (BNV) | payer MEDICAID, SELFPAY | PROVIDERS: PCP Internal Medicine; Visit Provider Internal Medicine | DX: I50.9 Heart failure, unspecified (principal) | CPT/HCPCS: 93306 ==

== ENCOUNTER 2023-11-29 20:47 | Emergency (ER) | payer OTHER, SELFPAY ==
--- NOTE | ~2023-11-29 | XR_ITS ---
EXAMINATION: XR SHOULDER, LEFT CLINICAL INFORMATION: Pain. COMPARISON: None available. TECHNIQUE: 2 views of the left shoulder. FINDINGS: The bone mineralization is normal. The joint spaces are maintained. There is no fracture. The soft tissues are unremarkable. XR/XR shoulder LT min 2V IMPRESSION: No significant abnormality identified.
[2023-11-29 20:50] VITALS: BP 106/64; PULSE 95; RESP 20; TEMP 36.6; O2SAT 98; BMI 36.9
--- NOTE | 2023-11-30 00:23 | ED_ITS ---
HPI - Extremity Problem General Chief complaint: Extremity Injury, Upper Stated complaint: Left Shoulder Pain Time Seen by Provider: 11/30/23 00:02 Source: patient Mode of arrival: ambulatory Limitations: no limitations History of Present Illness HPI Narrative: Patient complaining of pain in left upper back for last 2 weeks denies any trauma pain is localized in the rhomboids area no shortness a breath no chest pain Related Data Previous Rx's ?Medication ?Instructions ?Recorded miscellaneous medical supply #1 ea 06/14/23 (Blood Pressure Cuff) ibuprofen 600 mg tablet 600 mg PO Q6H PRN fever or pain 11/30/23 #30 tabs Allergies Allergy/AdvReac Type Severity Reaction Status Date / Time nut - unspecified [nut] Allergy Unknown TONGUE Verified 11/29/23 20:55 SWELLS FRUIT Allergy Unknown TONGUE Uncoded 03/31/20 17:26 TINGLING Review of Systems 2 Review of Systems: Yes all other systems are reviewed and are negative PMFSH Social History Social History Alcohol intake: current Alcohol intake frequency: holidays/special occasions only Advance Directives: No Advance Directives Information Provided: Yes Do you have a plan to hurt others: No Plan Physical Exam 2 Vital Signs: Vital Signs: Last Vital Signs Temp 0 F L 11/30/23 00:37 Pulse 0 L 11/30/23 00:37 Resp 0 L 11/30/23 00:37 BP 0/0 L 11/30/23 00:37 Pulse Ox 98 11/29/23 20:50 O2 Del Method Room Air 11/29/23 20:50 BMI result Body Mass Index 36.9 Appearance: Alert. Oriented X3. No acute distress. ENT: Pharynx normal. Oral Mucosa moist Neck: Normal inspection. Neck supple. CVS: Normal heart rate and rhythm. Pulses normal. Respiratory: No respiratory distress. Equal air entry bilateral, no wheezing/rales/rhonchi Skin: Skin warm and dry. Normal skin color. Normal skin turgor. Extremities: No lower extremity edema. Neuro: Oriented X 3. Extrem: Shoulder/upper arm images: 1. Tender left rhomboids increased pain on pushing left shoulder with good range of movement neurovascular intact Medications Administered Discontinued Medications Generic Name Dose Route Start Last Admin Trade Name Freq PRN Reason Stop Dose Admin Ibuprofen 600 mg 11/30/23 00:23 11/30/23 00:39 Ibuprofen 600 Mg Tablet PO 11/30/23 00:24 Not Given ONCE ONE Medical Decision Making Independent Interpretation I performed an independent interpretation of an: Plain X-Ray Radiology Impression Discussion of test interpretation with radiology: I have reviewed the radiologist's reading. Discharge Plan Discharge Clinical Impression: Rhomboid muscle pain Patient Disposition: Home, Self-Care Instructions: Thoracic Pain (ED) Additional Instructions: Apply ice Take ibuprofen for pain Prescriptions: New ibuprofen 600 mg tablet 600 mg PO Q6H PRN (Reason: fever or pain) Qty: 30 0RF No Action (DME) Blood Pressure Cuff Misc See Rx Instructions .Route Qty: 1 0RF Rx Instructions: As directed Interventions: ED Discharge Assessment Last Done: 11/30/23 00:37 Discharge Date/Time: 11/30/23 00:40 Print Language: Danish
[2023-11-30 00:37] VITALS: BP 0/0; PULSE 0; RESP 0; TEMP -17.7; TEMP 0
--- NOTE | 2023-11-30 00:37 | PC.NURSE ---
Pt left prior to discharge and medication administration.
== END 2023-11-30 00:40 | disposition home or self-care (01) ==
PROVIDERS: Emergency Provider Internal Medicine; PCP Internal Medicine
DX: M79.18 Myalgia, other site (principal); M25.512 Pain in left shoulder; M54.6 Pain in thoracic spine
CPT/HCPCS: 73030; 99282; 99283